=== PATIENT | female | born 1980 | race Two or more races ===

== ENCOUNTER 2017-05-12 20:33 | Emergency (ER) | payer OTHER ==
[2017-05-12] MEDS: METHYLPREDNISOLONE 125 MG INJ IV (21:08)
[2017-05-12] MEDS: DIPHENHYDRAMINE 50 MG INJ IV (21:08)
== END 2017-05-12 23:00 | disposition home or self-care (01) ==
LOC: FTE 20:33
DX: L50.9 Urticaria, unspecified (principal)
CPT/HCPCS: 96374; 96375; 99284-25